=== PATIENT | female | born 1960 | race Caucasian/White ===

== ENCOUNTER 2020-01-20 10:15 | Outpatient (REF) | payer OTHER, SELFPAY ==
[2020-01-20 14:16] LABS: Glucose Urine UA NEG (NEG); Leukocyte Esterase Urine NEG (NEG); Nitrite Urine NEG (NEG); Urine Blood NEG (NEG); Urine Ketones NEG (NEG); Urine Protein NEG (NEG-TRACE)
[2020-01-20 14:21] LABS: Appearance Urine CLEAR; Color Urine YELLOW
[2020-01-20 14:44] LABS: Mucus Urine TRACE /LPF; RBC Urine 0 /HPF (0); Squamous Epithelial Cell Urine TRACE /LPF; WBC Urine 0 /HPF (0-4)
== END 2020-01-20 10:16 | disposition home or self-care (01) ==
LOC: HO.10HDL 10:15
PROVIDERS: Visit Provider Internal Medicine
DX: R30.0 Dysuria (principal)
CPT/HCPCS: 81001; 87086

== ENCOUNTER 2020-03-10 14:44 | Outpatient (REF) | payer OTHER, SELFPAY ==
--- NOTE | 2020-03-10 14:50 | XR_ITS ---
EXAMINATION: XR CHEST CLINICAL INFORMATION: Fatigue, hypertension. COMPARISON: None TECHNIQUE: 2 views of the chest were obtained. FINDINGS: The lungs are well-expanded and clear of acute process. Heart size and pulmonary vascularity is normal. There are median sternotomy ayala along the anterior chest wall from previous intervention. There are bilateral breast prosthesis present. No gross bony abnormality seen. XR/XR chest 2V IMPRESSION: Unremarkable chest exam.
[2020-03-10 15:59] LABS: MANUAL DIFF FLAG NO
[2020-03-10 16:07] LABS: Basophils Percent Auto 0.5 % (0-2); Eosinophils Percent Auto 0.6 % (0-4); Hematocrit 41.5 % (37-47); Hemoglobin 13.6 g/dl (12.0-16.0); Imm Gran Abs Auto 0.03 X10*3/uL (0.00-0.03); Imm Gran Pct Auto 0.5 % (0.0-0.4); Lymphocytes Absolute Auto 1.6 X10*3/uL (1.2-4.9); Lymphocytes Percent Auto 25.1 % (20-40); Mean Corpuscular HGB Conc 32.8 g/dl (31.0-35.0); Mean Corpuscular Hemoglobin 30.7 pg (27.0-33.0); Mean Corpuscular Volume 93.7 fL (80-98); Mean Platelet Volume 9.5 fL (9.4-12.3); Monocytes Absolute Auto 0.3 X10*3/uL (0.1-1.2); Monocytes Percent Auto 5.4 % (2-11); Neutrophils Absolute Auto 4.3 X10*3/uL (2.0-8.3); Neutrophils Percent Auto 67.9 % (45-73); Platelet Count 270 X10*3/uL (160-400); Red Blood Count 4.43 X10*6/uL (4.20-5.50); Red Cell Distribution Width 12.2 % (11.0-16.0); White Blood Count 6.3 X10*3/uL (4.8-10.8)
[2020-03-10 16:24] LABS: Alanine Aminotransferase 28 U/L (0-31); Albumin Level 4.2 g/dL (3.5-5.0); Alkaline Phosphatase 38 U/L (39-117); Anion Gap 11 (12-20); Aspartate Amino Transferase 18 U/L (5-31); Bilirubin Total < 0.2 mg/dL (0.0-1.0); Blood Urea Nitrogen 20 mg/dL (9-16); C Reactive Protein 0.04 mg/dL (< or = 0.50); Carbon Dioxide 27 mmol/L (22-29); Chloride 106 mmol/L (96-108); Estimated Glomerular Filt Rate > 60; Glucose Random 87 mg/dL (60-115); Potassium 4.3 mmol/l (3.3-5.1); Sodium 140 mmol/L (135-145); Total Protein 6.6 g/dL (6.5-8.0)
[2020-03-10 16:30] LABS: B Type Natriuretic Peptide 12 pg/mL (<100); Troponin-I High Sensitivity < 3.5 ng/L (<3.5-17.0)
== END 2020-03-10 14:45 | disposition home or self-care (01) ==
LOC: HO.LAB 14:44
PROVIDERS: Visit Provider Internal Medicine
DX: R53.83 Other fatigue (principal); I10 Essential (primary) hypertension; R00.2 Palpitations
CPT/HCPCS: 36415; 71046; 80053; 82550; 83880; 84484; 85025; 86140

== ENCOUNTER → 2020-03-16 09:10 | Outpatient (REF) | payer OTHER, SELFPAY ==
--- NOTE | 2020-03-16 09:30 | CA_ITS ---
Transthoracic Echocardiogram Patient (Last, First, Middle): Sandy Martinez, Gender: Female Date of : 1960 Age: 59 Procedure Date: 03/16/2020 Procedure Type: Transthoracic Echocardiogram Location: OP Height: 162.56 cm Weight: 66.68 kg BSA: 1.72 m2 Heart Rate: bpm BP: 130 / 80 mmHg Uke Driver: DSG Referring MD: Keith Bernal MD Ingredient Mixer: Adrian Kelly MD Symptoms: ABNORMAL EKG,LIGHTHEADNESS Study Quality: Fair ECG Rhythm: Sinus Conclusions: - Normal study Findings Left Ventricle Normal left ventricular size, thickness, and systolic function. The visually estimated ejection fraction is between 65-70%. Diastolic function is normal for age. Right Ventricle Normal right ventricular cavity size and systolic function. Atria Both atria are normal in size. There is no evidence of interatrial shunt. Aortic Valve The aortic valve structure and function is likely normal. There is no aortic valve stenosis. There is no aortic valve regurgitation. Mitral Valve Normal mitral valve structure and function. There is no mitral valve regurgitation. There is no mitral valve stenosis. Pulmonic Valve The pulmonic valve was not well visualized. Tricuspid Valve Normal tricuspid valve structure. There is trace tricuspid valve regurgitation. The right ventricular systolic pressure is normal. The right ventricular systolic pressure is 20 mmHg. Normal right atrial pressure. There is no evidence of pulmonary hypertension. Great Vessels All visible segments of the aorta are normal in size. The pulmonary artery was not well visualized. Venous The inferior vena cava is normal in size and collapses greater than 50% with inspiration. Pericardium/Pleural There is no evidence of pericardial effusion. Prior Study Comparison No previous study in the last 5 years for comparison Measurements 2D Linear Measurements IVSd: 1.14 0.6-0.9/0.6-1.0 cm LVIDd: 4.32 3.9-5.3/4.2-5.9 cm LVIDd Index: 2.51 2.4-3.2/2.2-3.1 cm/m2 LVIDs: 2.81 2.0-3.6 cm LVPWd: 1.17 0.7-1.1 cm Ao Root: 2.80 2.1-3.5 cm LA Diam: 3.00 2.7-3.8/3.0-4.0 cm LAIDs Index: 1.74 1.5-2.3 cm/m2 LV Mass: 219.25 67-162/88-224 g LV Mass Index: 127.47 43-95/49-115 g/m2 LVOT Diam: 1.90 3.0+(-)1.3 cm 2D Systolic Function EF 4C: 63.80 >55% EF 2C: 69.70 >55% EF BiP: 67.20 >55% Mitral Valve MV Pk E: 0.61 MV PK A: 0.50 MV Decel Time: 198.00 E/A: 1.20 E'Lateral: 10.30 E'Medial: 12.40 E/E' Med: 4.90 E/E' Lat: 5.90 PHT: 58.00 MVA PHT: 3.79 Decel [place]: 3.06 Aortic Valve AoV Pk Jose: 1.34 AoV Pk Grad: 7.00 LVOT LVOT Pk Jose: 0.96 LVOT Mn Jose: 0.66 LVOT VTI: 0.20 LVOT Pk Grad: 4.00 LVOT Mn Grad: 2.00 LVOT Diam: 1.90 LVOT Area: 2.84 Diastolic Function MV Pk E: 0.61 MV Pk A: 0.50 E/A: 1.20 E'Medial: 12.40 E/E' Med: 4.90 E' Laterial: 10.30 E/E' Lat: 5.90 Tricuspid Valve TR Pk Jose: 2.06 TR Pk Grad: 17.00 RA Press: 3.00 RVSP: 20.00 Great Vessels Aorta Ao Root-2D: 2.80 2.0-3.7 cm Ao Asc: 3.30 2.1-3.4 cm Ao Arch: 2.80 Updated in Other Vendor System with Status of Final Adrian Kelly MD electronically signed on 03/17/2020 1:26:02 PM with status of Final
== END ==
LOC: HO.CARD 09:10
PROVIDERS: Visit Provider Internal Medicine
DX: R94.31 Abnormal electrocardiogram [ECG] [EKG] (principal); R42 Dizziness and giddiness; R61 Generalized hyperhidrosis
CPT/HCPCS: 93306

== ENCOUNTER 2020-08-09 14:35 | Outpatient (REF) | payer OTHER, SELFPAY ==
--- NOTE | ~2020-08-09 | XR_ITS ---
EXAMINATION: XR CHEST CLINICAL INFORMATION: Cough. COMPARISON: Multiple priors, most recent chest radiograph dated 03/10/2020. TECHNIQUE: 2 views of the chest were obtained. FINDINGS: The lungs are clear. The cardiomediastinal silhouette is normal in size. There is no pleural effusion or pneumothorax. No acute osseous abnormality. XR/XR chest 2V IMPRESSION: No acute cardiopulmonary findings.
== END 2020-08-09 14:36 | disposition home or self-care (01) ==
LOC: HO.XRAY 14:35
PROVIDERS: PCP Internal Medicine; Visit Provider Internal Medicine
DX: R05 Cough (principal)
CPT/HCPCS: 71046

== ENCOUNTER 2020-09-05 11:00 | Outpatient (REF) | payer OTHER, SELFPAY ==
--- NOTE | ~2020-09-05 | XR_ITS ---
EXAMINATION: PELVIS SERIES LUMBAR SACRAL SPINE SERIES. CLINICAL INFORMATION: Low back pain pelvis pain pelvis pain COMPARISON: Lumbar sacral spine August 2020. X-ray the pelvis October 2015 TECHNIQUE: 3 views of lumbar sacral spine. Single view the pelvis. FINDINGS: Lumbar sacral Lumbar sacral spine: Minimal endplate osteophytes at the L3-4 L4-5 level without disc space narrowing indicative of minimal degenerative disc disease unchanged. Remaining disc levels are normal. Facets normal. Surrounding bone and soft tissues unremarkable. Pelvis: Bones joints and soft tissues are normal. XR/XR pelvis 1-2V IMPRESSION: Lumbar sacral spine: Minimal spondylosis unchanged Pelvis: Normal
--- NOTE | ~2020-09-05 | XR_ITS ---
EXAMINATION: PELVIS SERIES LUMBAR SACRAL SPINE SERIES. CLINICAL INFORMATION: Low back pain pelvis pain pelvis pain COMPARISON: Lumbar sacral spine August 2020. X-ray the pelvis October 2015 TECHNIQUE: 3 views of lumbar sacral spine. Single view the pelvis. FINDINGS: Lumbar sacral Lumbar sacral spine: Minimal endplate osteophytes at the L3-4 L4-5 level without disc space narrowing indicative of minimal degenerative disc disease unchanged. Remaining disc levels are normal. Facets normal. Surrounding bone and soft tissues unremarkable. Pelvis: Bones joints and soft tissues are normal. XR/XR lumbar spine 2-3V IMPRESSION: Lumbar sacral spine: Minimal spondylosis unchanged Pelvis: Normal
== END 2020-09-05 11:01 | disposition home or self-care (01) ==
LOC: HO.XRAY 11:00
PROVIDERS: PCP Internal Medicine; Visit Provider Internal Medicine
DX: R10.2 Pelvic and perineal pain (principal); M54.5 Low back pain
CPT/HCPCS: 72100; 72170

== ENCOUNTER 2020-10-19 16:09 | Outpatient (REF) | payer OTHER, SELFPAY ==
[2020-10-19 17:36] LABS: Erythrocyte Sedimentation Rate 2 MM/HR (0-20)
[2020-10-19 17:41] LABS: C Reactive Protein 0.15 mg/dL (< or = 0.50)
[2020-10-19 18:01] LABS: Free T4 (Free Thyroxine) 0.97 ng/dL (0.71-1.85); Thyroid Stimulating Hormone 0.61 uIU/mL (0.32-4.0); Vitamin D 25-OH Total 29.7 ng/mL (>30)
[2020-10-19 18:08] LABS: Vitamin B12 366 pg/mL (200-900)
== END 2020-10-19 16:10 | disposition home or self-care (01) ==
LOC: HO.LAB 16:09
PROVIDERS: PCP Internal Medicine; Visit Provider Internal Medicine
DX: I10 Essential (primary) hypertension (principal); M54.9 Dorsalgia, unspecified; C50.919 Malignant neoplasm of unspecified site of unspecified female breast
CPT/HCPCS: 36415; 82306; 82607; 84439; 84443; 85652; 86140

== ENCOUNTER 2021-11-14 15:48 | Outpatient (REF) | payer OTHER, SELFPAY ==
[2021-11-16 05:21] LABS: Mumps Virus IgG Antibody >300.00 AU/mL; Rubeola IgG (Measles) >300.00 AU/mL
== END 2021-11-14 15:49 | disposition home or self-care (01) ==
LOC: HO.LAB 15:48
PROVIDERS: PCP Internal Medicine; Visit Provider Internal Medicine
DX: Z01.84 Encounter for antibody response examination (principal)
CPT/HCPCS: 86382; 86735; 86762; 86765; 86787

== ENCOUNTER 2022-01-16 14:04 | Outpatient (REF) | payer OTHER, SELFPAY ==
--- NOTE | ~2022-01-16 | US_ITS ---
EXAMINATION: US VENOUS ULTRASOUND WITH DOPPLER LOWER EXTREMITY, RIGHT CLINICAL INFORMATION: Pain COMPARISON: None TECHNIQUE: Ultrasound of the deep veins is performed from the hip to the calf with compression sonography and color and pulse Doppler assessment. Spectral analysis with color-flow imaging is performed. FINDINGS: There is normal venous compression and respiratory variation and augmented flow. The visualized common femoral vein, superficial femoral vein, profunda femoral vein, popliteal vein, and the trifurcation region shows no evidence of deep venous thrombosis. There is no Piper's cyst. There is a small joint effusion. US/US venous duplex LE RT IMPRESSION: No DVT demonstrated in the right lower extremity.
== END 2022-01-16 14:05 | disposition home or self-care (01) ==
LOC: HO.US 14:04
PROVIDERS: PCP Internal Medicine; Visit Provider Internal Medicine
DX: M79.661 Pain in right lower leg (principal)
CPT/HCPCS: 93971

== ENCOUNTER 2022-11-14 10:41 | Outpatient (REF) | payer OTHER, SELFPAY ==
[2022-11-14 13:21] LABS: MANUAL DIFF FLAG NO
[2022-11-14 13:30] LABS: Basophils Percent Auto 0.5 % (0-2); Eosinophils Absolute Auto 0.1 X10*3/uL (0.0-0.4); Eosinophils Percent Auto 2.1 % (0-4); Hematocrit 43.7 % (37.0-47.0); Hemoglobin 14.6 g/dl (12.0-16.0); Imm Gran Abs Auto 0.03 X10*3/uL (0.00-0.03); Imm Gran Pct Auto 0.5 % (0.0-0.4); Lymphocytes Absolute Auto 1.4 X10*3/uL (1.2-4.9); Lymphocytes Percent Auto 25.6 % (20-40); Mean Corpuscular HGB Conc 33.4 g/dl (31.0-35.0); Mean Corpuscular Hemoglobin 29.9 pg (27.0-33.0); Mean Corpuscular Volume 89.4 fL (80.0-98.0); Mean Platelet Volume 9.6 fL (9.4-12.3); Monocytes Absolute Auto 0.4 X10*3/uL (0.1-1.2); Monocytes Percent Auto 6.8 % (2-11); Neutrophils Absolute Auto 3.6 x10*3/uL (2.0-8.3); Neutrophils Percent Auto 64.5 % (45-73); Platelet Count 313 X10*3/uL (160-400); Red Blood Count 4.89 X10*6/uL (4.20-5.50); Red Cell Distribution Width 12.4 % (11.0-16.0); White Blood Count 5.6 X10*3/uL (4.8-10.8)
[2022-11-14 14:21] LABS: Free T4 (Free Thyroxine) 0.95 ng/dL (0.71-1.85); Thyroid Stimulating Hormone 1.41 uIU/mL (0.32-4.0)
== END 2022-11-14 10:42 | disposition home or self-care (01) ==
LOC: HO.10HDL 10:41
PROVIDERS: Visit Provider Internal Medicine
DX: R53.83 Other fatigue (principal); I10 Essential (primary) hypertension; K21.9 Gastro-esophageal reflux disease without esophagitis; E78.00 Pure hypercholesterolemia, unspecified
CPT/HCPCS: 36415; 84439; 84443; 85025

== ENCOUNTER 2022-12-26 09:38 | Outpatient (REF) | payer OTHER, SELFPAY ==
[2022-12-26 10:55] LABS: Appearance Urine Clear; Color Urine Yellow; Glucose Urine UA Negative (Negative); Leukocyte Esterase Urine Negative (Negative); Nitrite Urine Negative (Negative); PH 5.5 (5.0-9.0); Urine Blood Negative (Negative); Urine Ketones Negative (Negative); Urine Protein Negative (Neg-Trace)
[2022-12-26 10:57] LABS: Bacteria Urine None Seen (None Seen); Hyaline Casts Urine 0-2 /LPF (0-2); RBC Urine 0-2 /HPF (0-2); Squamous Epithelial Cell Urine 0-2 /HPF (0-2); WBC Urine 0-5 /HPF (0-5)
[2022-12-26 11:16] LABS: Alanine Aminotransferase 29 U/L (0-31); Albumin Level 4.3 g/dL (3.5-5.0); Alkaline Phosphatase 67 U/L (39-117); Aspartate Amino Transferase 20 U/L (5-31); Bilirubin Direct 0.1 mg/dL (0.0-0.5); Bilirubin Total 0.4 mg/dL (0.0-1.0); C Reactive Protein < 0.10 mg/dL (< or = 0.50); Cholesterol 234 mg/dL (<200); HDL Cholesterol 69 mg/dL (>40); LDL Cholesterol Calculated 143 mg/dL (<100); Total Protein 7.1 g/dL (6.5-8.0); Triglycerides 112 mg/dL (<150)
[2022-12-27 12:57] LABS: Thyroid Peroxidase Antibodies <1 IU/mL (<9)
== END 2022-12-26 09:39 | disposition home or self-care (01) ==
LOC: HO.10HDL 09:38
PROVIDERS: Visit Provider Internal Medicine
DX: I10 Essential (primary) hypertension (principal); K21.9 Gastro-esophageal reflux disease without esophagitis; E78.00 Pure hypercholesterolemia, unspecified; R79.82 Elevated C-reactive protein (CRP); E04.1 Nontoxic single thyroid nodule; R30.0 Dysuria
CPT/HCPCS: 36415; 80061; 80076; 81001; 82550; 86140; 86376; 87086

== ENCOUNTER 2023-03-18 14:12 | Outpatient (REF) | payer OTHER, SELFPAY ==
--- NOTE | ~2023-03-18 | XR_ITS ---
EXAMINATION: XR CHEST CLINICAL INFORMATION: Cough, pain. COMPARISON: 08/09/2020 TECHNIQUE: 2 views of the chest were obtained. FINDINGS: There is no acute finding. The lung buck are felt to be comparable to previous. No infiltrate or effusion. The hilar regions do not appear pathologically enlarged. Comparable to previous. Mild elevation of the right hemidiaphragm. No effusion. The cardiac silhouette is comparable. Some calcification in the aortic arch. Surgical clips are noted. XR/XR chest 2V IMPRESSION: No acute finding.
--- NOTE | ~2023-03-18 | XR_ITS ---
EXAMINATION: XR SINUSES CLINICAL INFORMATION: Cough, sinus pain. COMPARISON: None available. TECHNIQUE: 5 views. FINDINGS: No evidence for an air-fluid level. The sinuses are felt to be grossly clear. XR/XR sinus min 3V IMPRESSION: Grossly clear sinuses. Certainly no evidence for air-fluid level.
== END 2023-03-18 14:13 | disposition home or self-care (01) ==
LOC: HO.XRAY 14:12
PROVIDERS: PCP Internal Medicine; Visit Provider Internal Medicine
DX: R05.9 Cough, unspecified (principal); J34.89 Other specified disorders of nose and nasal sinuses
CPT/HCPCS: 70220; 71046

== ENCOUNTER 2023-04-23 15:04 | Outpatient (REF) | payer OTHER, SELFPAY ==
[2023-04-23 15:53] LABS: Influenza A PCR NEGATIVE (Negative); Influenza B PCR NEGATIVE (Negative); Resp Syncy Virus RNA Qual PCR NEGATIVE (Negative); SARS COV2 PCR INHOUSE NEGATIVE (Negative)
== END 2023-04-23 15:05 | disposition home or self-care (01) ==
LOC: HO.LNP 15:04
PROVIDERS: Visit Provider Internal Medicine
DX: Z11.52 Encounter for screening for COVID-19 (principal); Z20.822 Contact with and (suspected) exposure to COVID-19; R05.9 Cough, unspecified
CPT/HCPCS: 0241U

== ENCOUNTER 2024-02-20 10:22 | Outpatient (REF) | payer OTHER, SELFPAY ==
[2024-02-20 10:34] LABS: MANUAL DIFF FLAG NO
[2024-02-20 11:07] LABS: Basophils Percent Auto 0.5 % (0-2); Eosinophils Percent Auto 0.6 % (0-4); Hemoglobin 15.3 g/dl (12.0-16.0); Imm Gran Abs Auto 0.06 X10*3/uL (0.00-0.03); Imm Gran Pct Auto 0.9 % (0.0-0.4); Lymphocytes Absolute Auto 1.8 X10*3/uL (1.2-4.9); Mean Corpuscular HGB Conc 32.6 g/dl (31.0-35.0); Mean Corpuscular Hemoglobin 29.8 pg (27.0-33.0); Mean Corpuscular Volume 91.4 fL (80.0-98.0); Mean Platelet Volume 8.9 fL (9.4-12.3); Monocytes Absolute Auto 0.5 X10*3/uL (0.1-1.2); Monocytes Percent Auto 7.5 % (2-11); Neutrophils Absolute Auto 4.2 x10*3/uL (2.0-8.3); Neutrophils Percent Auto 63.5 % (45-73); Platelet Count 339 X10*3/uL (160-400); Red Blood Count 5.14 X10*6/uL (4.20-5.50); Red Cell Distribution Width 13.2 % (11.0-16.0); White Blood Count 6.7 X10*3/uL (4.8-10.8)
[2024-02-20 11:51] LABS: Alanine Aminotransferase 37 U/L (0-31); Albumin Level 4.3 g/dL (3.5-5.0); Alkaline Phosphatase 45 U/L (39-117); Anion Gap 10 (12-20); Aspartate Amino Transferase 21 U/L (5-31); Bilirubin Total 0.5 mg/dL (0.0-1.0); Blood Urea Nitrogen 15 mg/dL (9-16); Calcium 9.5 mg/dL (8.4-10.2); Carbon Dioxide 29 mmol/L (22-29); Chloride 105 mmol/L (96-108); Cholesterol 274 mg/dL (<200); Estimated Glomerular Filt Rate > 60; Glucose Fasting 87 mg/dL (60-99); HDL Cholesterol 70 mg/dL (>40); LDL Cholesterol Calculated 180 mg/dL (<100); Potassium 4.8 mmol/L (3.3-5.1); Sodium 139 mmol/L (135-145); Total Protein 7.2 g/dL (6.5-8.0); Triglycerides 122 mg/dL (<150)
[2024-02-20 12:12] LABS: Free T4 (Free Thyroxine) 1.22 ng/dL (0.71-1.85); Vitamin D 25-OH Total 50.6 ng/mL (>30)
== END 2024-02-20 10:23 | disposition home or self-care (01) ==
LOC: HO.LAB 10:22
PROVIDERS: PCP Internal Medicine; Visit Provider Internal Medicine
DX: E78.00 Pure hypercholesterolemia, unspecified (principal); K21.9 Gastro-esophageal reflux disease without esophagitis
CPT/HCPCS: 36415; 80053; 80061; 82306; 84439; 84443; 85025